=== PATIENT | female | born 1995 | race Caucasian/White ===

== ENCOUNTER 2023-06-22 19:01 | Emergency (ER) | payer OTHER ==
[~2023-06-22] VITALS: Ht 160 cm; Wt 66.2 kg
[2023-06-22 19:13] VITALS: BP 122/71; PULSE 85; RESP 18; TEMP 98.1; O2SAT 100
[2023-06-22] MEDS: KETOROLAC 30 MG/ML VIAL IM ONE (20:20)
[2023-06-22 20:59] LABS: APPEARANCE,URINE CLEAR (CLEAR); BILIRUBIN,URINE NEGATIVE (NEGATIVE); BLOOD, URINE 1+ (NEGATIVE); COLOR,URINE YELLOW (YELLOW); LEUKOCYTE ESTERASE ,URINE NEGATIVE (NEGATIVE); NITRITE, URINE NEGATIVE (NEGATIVE); PH,URINE 7.5 (5.0-9.0); PROTEIN,URINE NEGATIVE (NEGATIVE); UGLUCOSE NEGATIVE (NEGATIVE); UROBILINOGEN,URINE 0.2 EU/dL (0.2 - 1)
[2023-06-22 21:09] LABS: BACTERIA,URINE FEW /HPF (None Seen); SQUAMOUS EPITHELIAL CELL,UR 0-3 (FEW) /LPF (0-3 (FEW)); WBC,URINE 0-5 /HPF (0-5)
[2023-06-22] MEDS ORDERED: METR-435 PO (21:22)
[2023-06-22] MEDS ORDERED: NITR100C7 PO (21:22)
== END 2023-06-22 21:40 | disposition home or self-care (01) ==
LOC: MED 19:01
DX: N76.0 Acute vaginitis (principal); B96.89 Other specified bacterial agents as the cause of diseases classified elsewhere; N39.0 Urinary tract infection, site not specified; J45.909 Unspecified asthma, uncomplicated; Z98.890 Other specified postprocedural states; Z79.899 Other long term (current) drug therapy; Z88.0 Allergy status to penicillin; Z88.5 Allergy status to narcotic agent
CPT/HCPCS: 74018; 81001; 81025; 87491; 96372; 99284; J1885

== ENCOUNTER 2023-06-23 09:56 | Emergency (ER) | payer OTHER ==
[~2023-06-23] VITALS: Ht 160 cm; Wt 66.2 kg
[~2023-06-23 09:56] MED LIST: METR-435 PO; NITR100C7 PO
[2023-06-23 10:11] VITALS: BP 115/82; PULSE 90; RESP 18; TEMP 97.4; O2SAT 100
[2023-06-23] MEDS: KETOROLAC 30 MG/ML VIAL IM ONE (12:03)
[2023-06-23 14:58] VITALS: BP 106/73; PULSE 76; RESP 16; TEMP 98; O2SAT 98
== END 2023-06-23 15:02 | disposition home or self-care (01) ==
LOC: MED 09:56
DX: R30.0 Dysuria (principal); R10.2 Pelvic and perineal pain; Z79.899 Other long term (current) drug therapy
CPT/HCPCS: 76830; 81002; 81025; 87070; 87086; 87205; 87210; 96372; 99285; J1885; Q0092

== ENCOUNTER 2023-09-17 20:37 | Emergency (ER) | payer OTHER ==
[~2023-09-17] VITALS: Ht 160 cm; Wt 66.7 kg
[2023-09-17 21:03] VITALS: BP 106/69; PULSE 76; RESP 16; TEMP 97.8; O2SAT 99
[2023-09-17 23:15] LABS: APPEARANCE,URINE CLEAR (CLEAR); BILIRUBIN,URINE NEGATIVE (NEGATIVE); BLOOD, URINE TRACE-I (NEGATIVE); COLOR,URINE YELLOW (YELLOW); LEUKOCYTE ESTERASE ,URINE NEGATIVE (NEGATIVE); NITRITE, URINE NEGATIVE (NEGATIVE); PROTEIN,URINE NEGATIVE (NEGATIVE); UGLUCOSE NEGATIVE (NEGATIVE); UROBILINOGEN,URINE 0.2 EU/dL (0.2 - 1)
[2023-09-17 23:35] LABS: BACTERIA,URINE OCCASSIONAL /HPF (None Seen); RBC,URINE NONE SEEN /HPF (0-5); SQUAMOUS EPITHELIAL CELL,UR 0-3 (FEW) /LPF (0-3 (FEW)); WBC,URINE 0-5 /HPF (0-5)
[2023-09-17 23:40] VITALS: BP 110/72; PULSE 74; RESP 16; TEMP 98; O2SAT 99
[2023-09-18] MEDS ORDERED: IBUP-2213 PO (17:45)
[2023-09-18] MEDS ORDERED: ONDA-188 SL (17:45)
== END 2023-09-18 01:00 | disposition left against medical advice (07) ==
LOC: MED 20:37
DX: L29.2 Pruritus vulvae (principal); N23 Unspecified renal colic; Z53.21 Procedure and treatment not carried out due to patient leaving prior to being seen by health care provider
CPT/HCPCS: 36415; 81001; 81025

== ENCOUNTER 2023-10-23 14:03 | Emergency (ER) | payer MEDICAID, OTHER ==
[~2023-10-23] VITALS: Ht 160 cm; Wt 68.9 kg
[~2023-10-23 14:03] MED LIST changes: +IBUP-2213 PO; +ONDA-188 SL
[2023-10-23 14:19] VITALS: BP 113/71; PULSE 90; RESP 16; TEMP 97.1; O2SAT 100
[2023-10-23] MEDS ORDERED: BACI-418 TP (15:02)
[2023-10-23 15:26] VITALS: BP 113/71; PULSE 90; RESP 16; TEMP 97.1; O2SAT 100
== END 2023-10-23 15:26 | disposition home or self-care (01) ==
LOC: MED 14:03
DX: S90.451A Superficial foreign body, right great toe, initial encounter (principal); J45.909 Unspecified asthma, uncomplicated; Z79.899 Other long term (current) drug therapy; Z88.0 Allergy status to penicillin; Z88.5 Allergy status to narcotic agent; W45.8XXA Other foreign body or object entering through skin, initial encounter; Y92.89 Other specified places as the place of occurrence of the external cause; Y93.89 Activity, other specified; Y99.8 Other external cause status
CPT/HCPCS: 73660; 90471; 90715; 99283